=== PATIENT | male | born 1955 | race Caucasian/White ===

== ENCOUNTER → 2023-04-27 12:44 | Outpatient (REF) | payer MEDICARE, OTHER, SELFPAY | LOC: RAD 12:44 | PROVIDERS: ATTENDING PHYSICIAN Family Medicine | DX: R42 Dizziness and giddiness (principal) | CPT/HCPCS: 71046 ==

== ENCOUNTER → 2023-06-21 07:05 | Outpatient (REF) | payer MEDICARE, OTHER, SELFPAY ==
[2023-06-21] MEDS: LEXISCAN 0.400000000000000022 MG IV (09:04)
== END ==
LOC: RCS 07:05
PROVIDERS: ATTENDING PHYSICIAN Internal Medicine Interventional Cardiology; FAMILY PHYSICIAN Family Medicine
DX: E78.2 Mixed hyperlipidemia (principal); I10 Essential (primary) hypertension; R06.09 Other forms of dyspnea
CPT/HCPCS: 78452; 93017; A9500; J2785